=== PATIENT | male | born 1985 | race American Indian/Alaskan Native ===

== ENCOUNTER 2024-11-23 07:21 | Emergency (ER) | payer BC ==
[~2024-11-23] VITALS: Ht 160 cm; Wt 70.0 kg
[2024-11-23] MEDS ORDERED: HYDROCODON-ACE1 EA11 PO (08:10)
[2024-11-23] MEDS ORDERED: NEURONTIN300 MG PO (08:10)
[2024-11-23 08:15] VITALS: BP 144/9
== END 2024-11-23 08:16 | disposition home or self-care (01) ==
LOC: ED 07:21
DX: M79.601 Pain in right arm (principal)
CPT/HCPCS: 99283

== ENCOUNTER 2024-12-23 18:35 | Emergency (ER) | payer BC ==
[~2024-12-23] VITALS: Ht 160 cm; Wt 73.1 kg
[~2024-12-23 18:35] MED LIST: HYDROCODON-ACE1 EA11 PO; NEURONTIN300 MG PO
--- OUTSIDE RECORDS SUMMARY | 2024-12-23 18:43 | XMS ---
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 [place] - 2 Visits in 30 Days CARE PROVIDERS There are no care providers on record at this time. Swati has no Care Guidelines for this patient. Elva VISIT COUNT (12 MO.) 3 [facility] Yoli Doe M.C. TOTAL 4 NOTE: Visits indicate total known visits. ED/C VISIT TRACKING (12 MO.) 12/23/2024 18:37 MAGEN SharonVick Caballero [place] TYPE: Emergency COMPLAINT: - YELLOW EYES, BOATED STOMACH 11/26/2024 12:32 MAGEN Tabro TYPE: Emergency COMPLAINT: - COLD SYMPTOMS 11/23/2024 07:23 MAGEN Tabor TYPE: Emergency COMPLAINT: - RT ARM PAIN/ NO INJURY DIAGNOSES: - Pain in right arm 10/03/2024 17:02 Brook QUESADA TYPE: Emergency COMPLAINT: - LOWER ABD PAIN AND SWELLING INPATIENT VISIT TRACKING (12 MO.) No inpatient visits to display in this time frame [email or web address]
[2024-12-23] MEDS ORDERED: TRAZODONE HCL50 MG (19:04)
[2024-12-23] MEDS ORDERED: LEXAPRO10 MG PO (19:04)
[2024-12-23] MEDS ORDERED: HYDROXYZINE PAM25 MG PO (19:05)
[2024-12-23 19:16] LABS: BASOPHILS 0.4 % (0.2-1.2); EOSINOPHILS 0.5 % (0.8-7.0); HEMATOCRIT 28.5 % (40.1-51.0); HEMOGLOBIN 10.7 g/dL (13.7-17.5); LYMPHOCYTES 6.4 % (21.8-53.1); MCH 35.7 PG (25.7-32.2); MCHC 37.5 g/dL (32.3-36.5); MONOCYTES 6.8 % (5.3-12.2); NEUTROPHILS 83.7 % (34.0-67.9); PLATELET COUNT 206 K/uL (163-337)
[2024-12-23 19:20] LABS: ALBUMIN/GLOBULIN RATIO 0.43 (1.1-2.4); ANION GAP 12.3 (7-21); BILIRUBIN, TOTAL 22.8 mg/dL (0.2-1.0); CALCIUM 7.2 mg/dL (8.5-10.1); CREATININE, SERUM 1.2 mg/dL (0.70-1.30); PROTEIN, TOTAL 6.6 g/dL (6.4-8.2)
[2024-12-23 19:21] LABS: POTASSIUM 2.3 mmol/L (3.5-5.1)
[2024-12-23 19:42] LABS: INR 1.39 (0.80-1.30); PROTIME 16.2 Sec (11.2-14.2)
[2024-12-23] MEDS ORDERED: NS + 20 mEq KCl 1,000 ML IV ONE (19:45)
[2024-12-23] MEDS ORDERED: POTASSIUM CHLORIDE 10 MEQ TABCR PO ONE (19:45)
[2024-12-23 19:48] LABS: BILIRUBIN, URINE POSITIVE (negative); BLOOD/HGB, URINE NEGATIVE (Negative); KETONE, URINE SMALL (Negative); LEUK ESTERASE, URINE NEGATIVE (negative); NITRITE, URINE POSITIVE (negative); PH, URINE 6.5 (5-7)
[2024-12-23 19:59] LABS: RED BLOOD CELLS, URINE 0-1 /hpf (0-5)
[2024-12-23 20:02] LABS: CRYSTALS, URINE NONE SEEN (0-1+)
[2024-12-23 20:10] LABS: BACTERIA, URINE NONE SEEN /hpf (negative)
[2024-12-23 20:12] LABS: COLLECTION TYPE, URINE CLEAN CATCH; REFLEX CULTURE, URINE No (No)
[2024-12-23] MEDS ORDERED: MAGNESIUM SULFATE 2 GM/50 ML BAG IV ONE (21:30)
[2024-12-23 21:46] LABS: ACETAMINOPHEN 0 ug/mL (10-30); ALCOHOL, MEDICAL <3 ng/dL (<3); SALICYLATE <0.2 mg/dL (2.8-20.0)
[2024-12-23 21:53] LABS: AMPHETAMINES, URINE NEGATIVE (NEGATIVE); BARBITURATES, URINE NEGATIVE (NEGATIVE); BENZODIAZEPINE, URINE NEGATIVE (NEGATIVE); BUPRENORPHINE, URINE NEGATIVE (NEGATIVE); CANNABINOID, URINE NEGATIVE (NEGATIVE); COCAINE, URINE NEGATIVE (NEGATIVE); ECSTASY, URINE NEGATIVE (NEGATIVE); FENTANYL, URINE NEGATIVE (NEGATIVE); METHADONE, URINE NEGATIVE (NEGATIVE); OPIATES, URINE NEGATIVE (NEGATIVE); OXYCODONE, URINE NEGATIVE (NEGATIVE); PHENCYCLIDINE, URINE NEGATIVE (NEGATIVE)
[2024-12-23] MEDS ORDERED: MAGNESIUM OXID400 M1 PO (22:38)
[2024-12-23] MEDS ORDERED: CONSTULOSE10 GM/15 M PO (22:38)
[2024-12-23] MEDS ORDERED: POTASSIUM CHLO10 MEQ PO (22:38)
[2024-12-23] MEDS ORDERED: SPIRONOLACTONE25 MG PO (22:38)
[2024-12-23] MEDS ORDERED: PREDNISOLONE SO10 MG PO (22:38)
[2024-12-23] MEDS ORDERED: CIPRO500 MG PO (22:42)
[2024-12-23] MEDS ORDERED: methylPREDNISolone SOD SUCC 125 MG/2 ML VIAL IV ONE (22:45)
[2024-12-23] MEDS ORDERED: CIPROFLOXACIN 500 MG TAB PO ONE (22:45)
[2024-12-23 22:52] VITALS: BP 116/72
[2024-12-23] MEDS ORDERED: methylPREDNISolone SOD SUCC 125 MG/2 ML VIAL IM ONE (23:15)
[2024-12-25 13:35] LABS: CMV QNT BY NAAT, PL LOG IU/ML Not Detected (()); CMV QNT BY NAAT, PLASMA INTERP Not Detected (Not Detected); CMV QNT BY NAAT, PLASMA IU/ML Not Detected (())
[2024-12-26 19:06] LABS: HEPATITIS A ANTIBODY, IGM Negative (Negative); HEPATITIS B CORE ANTIBODY, IGM Negative (Negative); HEPATITIS B SURFACE ANTIGEN Negative (Negative); HEPATITIS C AB CIA INTERP Negative (Negative); HEPATITIS C ANTIBODY CIA INDEX 0.09 IV (())
== END 2024-12-23 23:24 | disposition home or self-care (01) ==
LOC: ED 18:35
PROVIDERS: Emergency Medicine; Family Medicine
DX: K74.60 Unspecified cirrhosis of liver (principal); Z79.899 Other long term (current) drug therapy
CPT/HCPCS: 36415; 74177; 80053; 80074; 80307; 81001; 82140; 83690; 83735; 85025; 85060; 85610; 96366; 96368; 99285-25; A9270; G0480; J2919; J3475; J3480; Q9967